=== PATIENT | female | born 1990 | race African-American/Black ===

== ENCOUNTER 2017-08-21 09:55 | Observation (INO) | payer MEDICAID, OTHER ==
[~2017-08-21] VITALS: Ht 165.1 cm; Wt 135.6 kg
[2017-08-21] MEDS ORDERED: NIFEdipine 10 MG CAP PO ONE (11:15)
[2017-08-21] MEDS ORDERED: SODIUM CHLORIDE 0.9% 1,000 ML IV ONE (11:15)
[2017-08-21 11:38] LABS: Urine Bacteria NONE SEEN /hpf (None Seen); Urine Blood Negative /uL (Negative); Urine Specific Gravity 1.017 (1.001-1.035); Urine WBC 1 /hpf (0 - 5)
== END 2017-08-21 13:05 | disposition home or self-care (01) | DRG 566 ==
LOC: LDRP 09:55
PROVIDERS: ADMIT Specialist; ATTEND Specialist
DX: O24.419 Gestational diabetes mellitus in pregnancy, unspecified control (principal); Z3A.34 34 weeks gestation of pregnancy
CPT/HCPCS: 59025; 76818; 81001; 82948; 82962; 96360; G0378; J7030; 96365

== ENCOUNTER 2017-08-28 15:06 | Observation (INO) | payer MEDICAID ==
[~2017-08-28 15:06] MED LIST: NIF10C PO; PREN-96 PO
== END 2017-08-28 17:36 | disposition home or self-care (01) | DRG 566 ==
LOC: LDRP 15:06
PROVIDERS: ADMIT Specialist; ATTEND Specialist
DX: O24.419 Gestational diabetes mellitus in pregnancy, unspecified control (principal); Z3A.35 35 weeks gestation of pregnancy
CPT/HCPCS: 59025; 76818; 81002; 82948; G0378

== ENCOUNTER 2017-09-02 10:55 | Observation (INO) | payer MEDICAID | END 2017-09-02 12:15 | disposition home or self-care (01) | DRG 566 | LOC: LDRP 10:55 | PROVIDERS: ADMIT Specialist; ATTEND Specialist | DX: O24.419 Gestational diabetes mellitus in pregnancy, unspecified control (principal); Z3A.35 35 weeks gestation of pregnancy | CPT/HCPCS: 59025; 76818; 81002; 82948; 82962; G0378 ==

== ENCOUNTER 2017-09-05 11:15 | Observation (INO) | payer MEDICAID | END 2017-09-05 12:40 | disposition home or self-care (01) | DRG 566 | LOC: LDRP 11:15 | PROVIDERS: ADMIT Obstetrics & Gynecology; ATTEND Obstetrics & Gynecology | DX: O26.893 Other specified pregnancy related conditions, third trimester (principal); O24.419 Gestational diabetes mellitus in pregnancy, unspecified control; R10.9 Unspecified abdominal pain; O60.03 Preterm labor without delivery, third trimester; Z3A.36 36 weeks gestation of pregnancy | CPT/HCPCS: 76818; G0378; 59025; 81002 ==

== ENCOUNTER 2017-09-08 14:05 | Observation (INO) | payer MEDICAID | END 2017-09-08 15:45 | disposition home or self-care (01) | DRG 566 | LOC: LDRP 14:05 | PROVIDERS: ADMIT Specialist; ATTEND Specialist | DX: O24.419 Gestational diabetes mellitus in pregnancy, unspecified control (principal); O60.03 Preterm labor without delivery, third trimester; Z3A.36 36 weeks gestation of pregnancy | CPT/HCPCS: 59025; 76818; 81002; 82962; G0378 ==

== ENCOUNTER 2017-09-11 10:10 | Observation (INO) | payer MEDICAID | END 2017-09-11 11:35 | disposition home or self-care (01) | DRG 563 | LOC: LDRP 10:10 | PROVIDERS: ADMIT Obstetrics & Gynecology; ATTEND Obstetrics & Gynecology | DX: O60.03 Preterm labor without delivery, third trimester (principal); Z3A.36 36 weeks gestation of pregnancy | CPT/HCPCS: 59025; 76818; 81002; 82962; G0378 ==

== ENCOUNTER 2017-09-14 11:22 | Observation (INO) | payer MEDICAID | END 2017-09-14 13:45 | disposition home or self-care (01) | DRG 566 | LOC: LDRP 11:22 | PROVIDERS: ADMIT Obstetrics & Gynecology; ATTEND Obstetrics & Gynecology | DX: O24.419 Gestational diabetes mellitus in pregnancy, unspecified control (principal); O26.893 Other specified pregnancy related conditions, third trimester; R10.2 Pelvic and perineal pain; O62.9 Abnormality of forces of labor, unspecified; Z3A.37 37 weeks gestation of pregnancy | CPT/HCPCS: 59025; 76817; 76818; 81002; 82948; 82962; G0378 ==

== ENCOUNTER 2017-09-17 12:00 | Observation (INO) | payer MEDICAID ==
[~2017-09-17] VITALS: Ht 165.1 cm; Wt 137.0 kg
[2017-09-17] MEDS ORDERED: NIFEdipine 10 MG CAP PO ONE (12:45)
[2017-09-17] MEDS ORDERED: TERBUTALINE SULFATE 1 MG/ML 1ML VIAL SC ONE (12:45)
== END 2017-09-17 14:15 | disposition home or self-care (01) | DRG 563 ==
LOC: LDRP 12:00
PROVIDERS: ADMIT Obstetrics & Gynecology; ATTEND Obstetrics & Gynecology
DX: O60.03 Preterm labor without delivery, third trimester (principal); O26.893 Other specified pregnancy related conditions, third trimester; O12.03 Gestational edema, third trimester; Z3A.38 38 weeks gestation of pregnancy
CPT/HCPCS: 59025; 76818; 81002; 96372; G0378; J3105

== ENCOUNTER 2017-09-21 09:30 | Observation (INO) | payer MEDICAID ==
[2017-09-21] MEDS ORDERED: LACTATED RINGER'S 1,000 ML IV ONE (10:22)
[2017-09-21] MEDS ORDERED: FERR27TA2 PO (10:24)
[2017-09-21] MEDS ORDERED: NIFEdipine 10 MG CAP PO ONE (10:30)
== END 2017-09-21 18:27 | disposition home or self-care (01) | DRG 566 ==
LOC: LDRP 09:30
PROVIDERS: ADMIT Specialist; ATTEND Specialist
DX: O62.9 Abnormality of forces of labor, unspecified (principal); Z3A.00 Weeks of gestation of pregnancy not specified
CPT/HCPCS: 59025; 76818; 81002; 82962; 96360; 96361; G0378; 96365; 96366

== ENCOUNTER 2017-09-24 07:55 | Inpatient (IN) | payer MEDICAID ==
[~2017-09-24] VITALS: Ht 165.1 cm; Wt 137.9 kg
[2017-09-24] VITALS (12 sets, daily range): BP systolic 106–127; BP diastolic 51–85
[~2017-09-24 07:55] MED LIST changes: +FERR27TA2 PO
[2017-09-24 08:47] LABS: Urine WBC None Seen /hpf (0 - 5)
[2017-09-24 08:51] LABS: Basophils # (auto) 0 uL; Eosinophils # (auto) 0.1 uL; Hemoglobin 11.5 g/dL (12.2-16.2); Lymphocytes # (auto) 1.4 uL; Monocytes # (auto) 0.4 uL; Neutrophils # (auto) 5.1 uL
[2017-09-24 08:53] LABS: Basophils % (auto) 0.3 % (0.0-2.0); Eosinophils % (auto) 0.7 % (0.0-7.0); Hematocrit 34.9 % (36.0-46.0); Lymphocytes % (auto) 20.5 % (10.0-50.0); Mean Corpuscular Hemoglobin 26.4 pg (28.0-32.0); Mean Corpuscular Hgb Conc. 32.9 g/dL (32.0-36.0); Mean Corpuscular Volume 80.1 fL (80.0-100.0); Monocytes % (auto) 5.8 % (0.0-12.0); Neutrophils % (auto) 72.7 % (37.0-80.0); Nucleated Red Blood Cells % 0.1 %; Platelet Count (auto) 191 10^3/uL (140-450); Red Blood Cells 4.36 10^6/uL (4.0-5.20); White Blood Cell 7.1 10^3/uL (4.4-10.8)
[2017-09-24] MEDS: LACTATED RINGER'S 1,000 ML IV SCH ×3 (08:56→14:40)
[2017-09-24 09:08] LABS: INR 0.89 (0.9-1.15); Partial Thromboplastin Time 26.1 sec (23.78-33.04); Prothrombin Time 9.6 sec (9.27-12.13)
[2017-09-24 09:08] LABS: Urine Bacteria NONE SEEN /hpf (None Seen); Urine Blood Negative /uL (Negative); Urine Specific Gravity 1.008 (1.001-1.035)
[2017-09-24 09:30] LABS: Albumin 2.7 g/dL (3.4-5.0); BUN/Creatinine Ratio 13.1; Bilirubin, Total 0.3 mg/dL (0.2-1.0); Calcium 8.5 mg/dL (8.5-10.1); Potassium 3.8 mmol/L (3.5-5.1); Total Protein 7.5 g/dL (6.4-8.2)
[2017-09-24 09:39] LABS: Alcohol, Urine < 3.0 mg/dL (0-5); Amphetamine Screen, Urine NEGATIVE (NEGATIVE); Barbiturate Scree,Urine NEGATIVE (NEGATIVE); Benzodiazephine Screen, Urine NEGATIVE (NEGATIVE); Cannabinoid Screen, Urine NEGATIVE (NEGATIVE); Cocaine Screen, Urine NEGATIVE (NEGATIVE); Opiate Scree,Urine NEGATIVE (NEGATIVE); Phencyclidine Screen, Urine NEGATIVE (NEGATIVE)
[2017-09-24] MEDS: TERBUTALINE SULFATE 1 MG/ML 1ML VIAL SC SCH ×3 (10:45→11:40)
[2017-09-24] MEDS ORDERED: PHENYLEPHRINE HCL 10 MG/ML VL IV ONE (11:59)
[2017-09-24] MEDS ORDERED: PROPOFOL 10 MG/ML 20 ML IV ONE (12:02)
[2017-09-24] MEDS ORDERED: MORPHINE SULF(PF) 0.5MG/ML 10ML VIAL ONE (12:18)
[2017-09-24] MEDS ORDERED: MIDAZOLAM HCL 1MG/1ML-2 ML VIAL ONE (12:19)
[2017-09-24] MEDS ORDERED: fentaNYL CITRATE 100 MCG/2 ML VL ONE (12:19)
[2017-09-24] MEDS ORDERED: TETRACAINE 1% INJ 2 ML VIAL IJ ONE (12:47)
[2017-09-24] MEDS ORDERED: ceFAZolin 1GM VL ONE (13:19)
[2017-09-24] MEDS ORDERED: OXYTOCIN 10 UNIT/ML 10ML VIAL ONE (13:52)
[2017-09-24] MEDS ORDERED: diphenhdrAMINE HCL 50 MG/1 ML VL IV PRN (14:15)
[2017-09-24] MEDS ORDERED: NALBUPHINE HCL 10 MG/1ml INJECTION SUBCUT ONE (14:15)
[2017-09-24] MEDS ORDERED: ONDANSETRON HCL 4 MG/2 ML VIAL IV PRN (14:15)
[2017-09-24] MEDS ORDERED: HYDROmorphone HCL 2 MG/ML VL IV PRN (14:15)
[2017-09-24] MEDS ORDERED: NALOXONE HCL 0.4 MG/ML VIAL IV PRN (14:15)
[2017-09-24] MEDS ORDERED: ACCU-CHEK COMFORT CURVE STRIP VI ONE (14:15)
[2017-09-24] MEDS ORDERED: DEXAMETHASONE SOD PHOS 10MG/1ML VIAL INJ IV PRN (14:15)
[2017-09-24] MEDS ORDERED: KETOROLAC TROMETH 30 MG/ML 1ML VIAL IV PRN (14:15)
[2017-09-24] MEDS ORDERED: ceFAZolin 1GM/100ML 50 ML IV SCH (14:45)
[2017-09-24] MEDS ORDERED: PHYTONADIONE 1MG/0.5ML SYRINGE NEONATAL IM ONE (14:45)
[2017-09-24] MEDS ORDERED: ERYTHROMY OPTH OINT 5mg/gm 1gm OP ONE (14:45)
[2017-09-24] MEDS ORDERED: HEPATITIS B VACCINE PED (PF) 10 MCG/0.5 ML IM ONE (14:45)
[2017-09-24] MEDS ORDERED: ACCU-CHEK COMFORT CURVE STRIP VI PRN (14:45)
[2017-09-24] MEDS ORDERED: OXYTOCIN 10UNIT/ML 1ML VIAL ONE (15:25)
[2017-09-24] MEDS ORDERED: LACT. RINGERS/OXYTOCIN 20UNITS 1,000 ML IV ONE (15:45)
[2017-09-24] MEDS: KETOROLAC TROMETH 30 MG/ML 1ML VIAL IV SCH (18:39)
[2017-09-24] MEDS: ONDANSETRON HCL 4 MG/2 ML VIAL IV PRN (19:15)
[2017-09-24] MEDS: ceFAZolin 1GM/100ML 50 ML IV SCH (21:47)
[2017-09-25] VITALS (7 sets, daily range): BP systolic 97–116; BP diastolic 51–77
[2017-09-25] MEDS: LACTATED RINGER'S 1,000 ML IV SCH ×4 (00:17→23:33)
[2017-09-25] MEDS: ONDANSETRON HCL 4 MG/2 ML VIAL IV PRN ×2 (00:18→09:58)
[2017-09-25] MEDS: MORPHINE SULFATE 8mg/ml INJ SDV IV PRN ×3 (00:19→09:51)
[2017-09-25] MEDS: KETOROLAC TROMETH 30 MG/ML 1ML VIAL IV SCH ×2 (00:19→05:50)
[2017-09-25] MEDS: ceFAZolin 1GM/100ML 50 ML IV SCH ×2 (05:51→13:43)
[2017-09-25 07:03] LABS: Basophils # (auto) 0 uL; Basophils % (auto) 0.2 % (0.0-2.0); Eosinophils # (auto) 0 uL; Eosinophils % (auto) 0.6 % (0.0-7.0); Hematocrit 26.3 % (36.0-46.0); Hemoglobin 8.8 g/dL (12.2-16.2); Lymphocytes # (auto) 1.1 uL; Lymphocytes % (auto) 14.8 % (10.0-50.0); Mean Corpuscular Hemoglobin 27.1 pg (28.0-32.0); Mean Corpuscular Hgb Conc. 33.4 g/dL (32.0-36.0); Monocytes # (auto) 0.6 uL; Monocytes % (auto) 7.6 % (0.0-12.0); Neutrophils # (auto) 5.8 uL; Neutrophils % (auto) 76.8 % (37.0-80.0); Platelet Count (auto) 159 10^3/uL (140-450); Red Blood Cells 3.24 10^6/uL (4.0-5.20); Red Cell Distribution Width 14.1 % (11.8-14.3); White Blood Cell 7.6 10^3/uL (4.4-10.8)
[2017-09-25] MEDS ORDERED: HYDROcodone-ACET 5/325MG TAB PO PRN (13:30)
[2017-09-25] MEDS: HYDROcodone-ACET 5/325MG TAB PO PRN ×3 (13:43→22:21)
[2017-09-25] MEDS: DOCUSATE SOD 100 MG CAP PO SCH ×2 (13:46→22:20)
[2017-09-25] MEDS: SIMETHICONE 80 MG CHEWABLE TABLET PO PRN ×3 (13:46→22:19)
[2017-09-25] MEDS: IBUPROFEN 800 MG TAB PO PRN (18:01)
[2017-09-26] MEDS ORDERED: BISACODYL 10 MG RECT SUPP PR ONE (01:45)
[2017-09-26 02:30] VITALS: BP 136/80
[2017-09-26] MEDS: IBUPROFEN 800 MG TAB PO PRN ×3 (03:07→20:24)
[2017-09-26] MEDS: HYDROcodone-ACET 5/325MG TAB PO PRN ×3 (06:41→23:55)
[2017-09-26 07:00] VITALS: BP 108/61
[2017-09-26] MEDS: DOCUSATE SOD 100 MG CAP PO SCH ×2 (10:57→21:55)
[2017-09-26 11:16] VITALS: BP 119/83
[2017-09-26 15:15] VITALS: BP 103/52
[2017-09-26 19:00] VITALS: BP 112/62
[2017-09-26] MEDS ORDERED: TETANUS-DIPTH-ACEL PERTUSSIS 0.5ML SYRG IM ONE (22:00)
[2017-09-26 23:00] VITALS: BP 105/73
[2017-09-27 03:00] VITALS: BP 121/53
[2017-09-27] MEDS: IBUPROFEN 800 MG TAB PO PRN ×3 (04:57→22:25)
[2017-09-27 06:49] VITALS: BP 121/79
[2017-09-27] MEDS: HYDROcodone-ACET 5/325MG TAB PO PRN ×2 (09:15→18:41)
[2017-09-27] MEDS: DOCUSATE SOD 100 MG CAP PO SCH ×2 (09:16→22:15)
[2017-09-27 11:00] VITALS: BP 116/82
[2017-09-27 11:25] LABS: RPR Non Reactive (Non Reactive)
[2017-09-27 15:00] VITALS: BP 135/66
[2017-09-27 18:40] VITALS: BP 111/76
[2017-09-27 23:00] VITALS: BP 116/45
[2017-09-28] MEDS: HYDROcodone-ACET 5/325MG TAB PO PRN ×2 (00:14→05:50)
[2017-09-28 03:00] VITALS: BP 90/58
[2017-09-28 06:50] VITALS: BP 96/69
[2017-09-28] MEDS: IBUPROFEN 800 MG TAB PO PRN (07:50)
[2017-09-28] MEDS: DOCUSATE SOD 100 MG CAP PO SCH (09:39)
[2017-09-28 10:41] VITALS: BP 96/69
== END 2017-09-28 10:28 | disposition home or self-care (01) | DRG 540 ==
LOC: LDRP 07:55
PROVIDERS: ADMIT Specialist; ATTEND Specialist
PROC: 0DNU0ZZ Release Omentum, Open Approach (ICD-10-PCS; 2017-09-24)
PROC: 10D00Z1 Extraction of Products of Conception, Low, Open Approach (ICD-10-PCS; principal; 2017-09-24 13:02)
DX: O34.211 Maternal care for low transverse scar from previous cesarean delivery (principal); Z68.43 Body mass index [BMI] 50.0-59.9, adult; O24.420 Gestational diabetes mellitus in childbirth, diet controlled; O99.214 Obesity complicating childbirth; E66.01 Morbid (severe) obesity due to excess calories; O16.4 Unspecified maternal hypertension, complicating childbirth; O99.62 Diseases of the digestive system complicating childbirth; K66.0 Peritoneal adhesions (postprocedural) (postinfection); Z23 Encounter for immunization; Z37.0 Single live birth; Z3A.39 39 weeks gestation of pregnancy; Z82.49 Family history of ischemic heart disease and other diseases of the circulatory system
CPT/HCPCS: 36415; 51702; 59025; 80053; 80307; 81001; 82962; 85025; 85610; 85730; 86592; 86850; 86900; 86901; 90472; 96365; 96366; 96374; 96375; J0690; J1885; J2250; J2270; J2405; J2590; J2704